=== PATIENT | female | born 1995 | race Two or more races ===

== ENCOUNTER 2025-03-16 15:12 | Emergency (ER) | payer MEDICARE, MEDICAID ==
[~2025-03-16] VITALS: Ht 152.4 cm; Wt 68.2 kg
--- NOTE | 2025-03-16 15:47 | ED.PDOC ---
GI ASSESSMENT HPI Comments 29 year old female STEFANY presents to the ED with chief complaint of N/V and abdominal pain. Patient reports that she started to experience nausea and vomiting since 6am with associated chills, lower abdominal pain that radiates to the back, sweats, and a headache. Patient relays that later on today, she had a syncopal episode when she was having severe pain approximately 2 hours ago. Patient states she had similar symptoms 2 weeks ago, but at that time she had very low blood sugar and now it is normal. Patient denies any chest pain, SOB, dizziness, diarrhea, fever, dysuria, or hematemesis. Chief Complaint: Nausea/Vomiting Time Seen by MD: 15:46 Reviewed Notes: Nurses Notes, Trim Line Worker Notes, Medications, Allergies Allergies: Uncoded Allergies: PEANUTS (Allergy, Unknown, 03/05/25) SHELLFISH (Allergy, Unknown, 03/05/25) Information Source: Patient, Emergency Med Personnel Mode of Arrival: EMS Timing: Hours Duration: Since onset Prehospital treatment: None Quality: Sharp Vomitus: Watery Stool: Normal Severity: Moderate Recent: None Recent Hx of: None Pain Location: Suprapubic Associated sign and symptoms: Nausea, Vomiting, Abdominal Pain Past Medical History PAST MEDICAL HISTORY: Asthma Past Medical History (Other): Glaucoma Surgical History (Other): Right eye surgery MORTGAGE SPECIALIST History: No Pertinent MORTGAGE SPECIALIST History Family History Family History: Family hx of DM, Family hx of Cancer, Family hx of heart lauren Social History Smoker: Other Alcohol: Occasionally Drugs: Marijuana Lives In: Home Constitutional: reports: chills, sweats; denies: diaphoresis, fatigue, fever, malaise, weakness, others EENTM: denies: blurred vision, double vision, ear bleeding, ear discharge, ear drainage, ear pain, ear ringing, eye pain, eye redness, hearing loss, mouth pain, mouth swelling, nasal discharge, nose bleeding, nose congestion, nose pain, photophobia, tearing, throat pain, throat swelling, voice changes, others Respiratory: denies: cough, hemoptysis, orthopnea, SOB at rest, shortness of breath, SOB with excertion, stridor, wheezing, others Cardiovascular: reports: syncope; denies: chest pain, dizzy spells, diaphoresis, Dyspnea on exertion, edema, irregular heart beat, left arm pain, lightheadedness, palpitations, PND, others Gastrointestinal: reports: abdominal pain, nausea, vomiting; denies: abdomen distended, blood streaked bowels, constipated, diarrhea, dysphagia, difficulty swallowing, hematemesis, melena, poor appetite, poor fluid intake, rectal bleeding, rectal pain, others Genitourinary: denies: abnormal vagina bleeding, burning, dyspareunia, dysuria, flank pain, frequency, hematuria, incontinence, pain, , vagina discharge, urgency, others Neurological: reports: headache; denies: dizziness, fainting, left sided numbness, left sided weakness, numbness, paresthesia, pre-existing deficit, right sided numbness, right sided weakness, seizure, speech problems, tingling, tremors, weakness, others Musculoskeletal: denies: back pain, gout, joint pain, joint swelling, muscle pain, muscle stiffness, neck pain, others Integumetry: denies: bruises, change in color, change in hair/nails, dryness, laceration, lesions, lumps, rash, wounds, others Allergic/Immunocompromised: denies: Difficulty Healing, Frequent Infections, Hives, Itching, others Hematologic/Lymphatic: denies: anemia, blood clots, easy bleeding, easy bruising, swollen glands, others Endocrine: denies: excessive hunger, excessive sweating, excessive thirst, excessive urination, flushing, intolerance to cold, intolerance to heat, unexplained weight gain, unexplained weight loss, others Psychiatric: denies: anxiety, bipolar disorder, depression, hopeless, panic disorder, schizophrenia, sleepless, suicidal, others All Other Systems: Reviewed and Negative Physical Exam General Appearance: No Apparent Distress, Obese HEENT: Other (moist mucous membranes) Neck: Full Range of Motion, Normal Inspection Respiratory: Lungs Clear, No Accessory Muscle Use, No Respiratory Distress, Normal Breath Sounds Cardiovascular: No Edema, No JVD, Regular Rate/Rhythm Breast Exam: Deferred Gastrointestinal: Soft, Suprapubic, Tenderness Genitalia: Deferred Pelvic: Deferred Rectal: Deferred Extremities: Normal inspection, Normal range of motion, Non-tender, No pedal edema Neurologic: Alert (Oriented x4), Normal Affect, Normal Mood, Other (Ambulatory) Cerebellar Function: NOT DONE Reflexes: NOT DONE Skin: Dry, Normal Color, Warm Lymphatic: NOT DONE EKG EKG : Comments Sinus rhythm, rate 95, normal intervals, borderline right axis, normal QRS, no ST/T change. Was a procedure done? Was a procedure done?: No GI differential Dx Differential Diagnosis: Diverticular disease, Gastroenteritis, Inflammatory BD, Ischemic Bowel, UTI, Electrolyte Imbalance, Food Poisoning, , Bacterial, Viral, Hypovolemia, Renal Failure, Stress Ulcer, Kidney Stone, Other (Arrhythmia, CVA, TIA, [place], among others) X-Ray, Labs, Meds, VS Vital Signs Date Time Temp Pulse Resp B/P (MAP) Pulse Ox O2 Delivery O2 Flow Rate FiO2 03/16/25 18:43 98.4 93 18 120/71 (87) 97 98.4 03/16/25 16:37 79 18 124/71 03/16/25 16:07 76 19 129/87 03/16/25 15:54 95 03/16/25 15:25 97.7 94 18 121/84 (96) 99 97.7 Lab Test 03/16/25 18:00 03/16/25 16:08 Range/Units Urine Color Yellow Yellow Urine Clarity Turbid H Clear Urine pH 7.0 5.0-9.0 Urine Specific [place] 1.026 1.001-1.035 Urine Protein 1+ H Negative Urine Ketones 3+ H Negative Urine Blood Negative Negative /uL Urine Nitrite Negative Negative Urine Bilirubin Negative Negative Urine Urobilinogen Normal Negative mg/dL Urine Leukocyte Esterase 3+ Negative /uL Urine RBC 2 0 - 4 /hpf Urine Microscopic WBC 7 H 0-5 /HPF Urine Squamous Epithelial Cells Mod <5 /hpf Urine Bacteria None seen None Seen /hpf Urine Mucus Few None Seen Urine Glucose Normal Normal mg/dL White Blood Count 13.5 H 4.4-10.8 10^3/uL Red Blood Count 4.57 4.0-5.20 10^6/uL Hemoglobin 14.4 12.2-16.2 g/dL Hematocrit 42.2 36.0-46.0 % Mean Corpuscular Volume 92.4 80.0-100.0 fL Mean Corpuscular Hemoglobin 31.5 28.0-32.0 pg Mean Corpuscular Hemoglobin Concent 34.1 32.0-36.0 g/dL Red Cell Distribution Width 13.2 11.8-14.3 % Platelet Count 270 140-450 10^3/uL Mean Platelet Volume 8.3 6.9-10.8 fL Neutrophils (%) (Auto) 76.8 37.0-80.0 % Lymphocytes (%) (Auto) 15.6 10.0-50.0 % Monocytes (%) (Auto) 7.2 0.0-12.0 % Eosinophils (%) (Auto) 0.1 0.0-7.0 % Basophils (%) (Auto) 0.3 0.0-2.0 % Neutrophils # (Auto) 10.4 H 1.6-8.6 10 ^3/uL Lymphocytes # (Auto) 2.1 0.4-5.4 10 ^3/uL Monocytes # (Auto) 1.0 0-1.3 10 ^3/uL Eosinophils # (Auto) 0 0-0.8 10 ^3/uL Basophils # (Auto) 0 0-0.2 10 ^3/uL Nucleated Red Blood Cells 0.0 % Sodium Level 142 136-145 mmol/L Potassium Level 3.7 3.5-5.1 mmol/L Chloride Level 107 98-107 mmol/L Carbon Dioxide Level 22 20-31 mmol/L Anion Gap 13 5-15 Blood Urea Nitrogen 10 9-23 mg/dL Creatinine 0.88 0.550-1.02 mg/dL Glomerular Filtration Rate Calc 92 >90 mL/min BUN/Creatinine Ratio 11.4 10.0-20.0 Serum Glucose 76 74-106 mg/dL Calcium Level 10.0 8.7-10.4 mg/dL Total Bilirubin 0.7 0.2-1.0 mg/dL Aspartate Amino Transferase (AST) 28 13-40 U/L Alanine Aminotransferase (ALT) 33 7-40 U/L Alkaline Phosphatase 66 46-116 U/L Troponin I High Sensitivity < 3 L </=34 ng/L Total Protein 8.1 5.7-8.2 g/dL Albumin 5.2 H 3.2-4.8 g/dL Lipase 30 12-53 U/L Current Medications Medications (Trade) Dose Ordered Sig/Michael Route Start Time Stop Time Status Last Admin Sodium Chloride 2,000 ml @ 1,000 mls/hr Q2H ONCE IV 03/16/25 15:45 03/16/25 17:44 DC 03/16/25 16:07 Morphine Sulfate 4 mg ONCE ONCE IV 03/16/25 15:45 03/16/25 15:47 DC 03/16/25 16:07 Ondansetron HCl (Zofran) 4 mg ONCE ONCE IV 03/16/25 15:45 03/16/25 15:47 DC 03/16/25 16:06 PROCEDURE(s): HWOCT - HEAD WITHOUT CONTRAST REASON: syncope ORDER NUMBER(s): [id number], ACCESSION NUMBER(s): [id number] ADDENDUM ADDENDUM # 1 IMPRESSION: 1. HS:Y ORIGINAL REPORT EXAM: CT HEAD WITHOUT CONTRAST INDICATION: syncope TECHNIQUE: CT of the head without intravenous contrast. Radiation Dose Information: CT Dose: CTDI volume is 58.09 mGy. Dose-length product is 931.19 mGy*cm The dose indicators for CT are the volume Computed Tomography (CT) Dose Index (CTDIvol) and the Dose Length Product (DLP), and are measured in units of mGy and mGy-cm, respectively. These indicators are not patient dose, but values generated from the CT scanner acquisition factors. The report includes radiation exposure data for exposures received during this examination. COMPARISON: None FINDINGS: There is no evidence of acute intracranial hemorrhage, extra-axial collection, mass effect, midline shift, herniation or hydrocephalus. The ventricles, sulci and cisterns are age appropriate. The sotelo-white differentiation is intact. Patchy periventricular and subcortical white matter hypoattenuation is nonspecific but may be related to small vessel ischemic disease. The visualized paranasal sinuses and mastoid air cells are clear. The surrounding soft tissues and osseous structures are unremarkable. IMPRESSION: 1. No acute intracranial abnormality. EDURE(s): ABPL - CT AB PEL WO CON-NO ORAL OR IV REASON: low abd pain, n/v ORDER NUMBER(s): [id number], ACCESSION NUMBER(s): [id number] ADDENDUM ADDENDUM # 1 IMPRESSION: 1. HS:Y ORIGINAL REPORT Exam: CT CT AB PEL WO CON-NO ORAL OR IV History: low abd pain, n/v Comparison Study: None TECHNIQUE: Multidetector CT of the abdomen was performed from lung bases to pubic symphysis. Imaging was performed without IV contrast. Axial, coronal and sagittal multiplanar reformats were obtained from the axial data set by the te chnologist. Radiation Dose Information: CT Dose: CTDI volume is 10.16 mGy. Dose-length product is 450.29 mGy*cm FINDINGS: Evaluation of solid organs is limited due to lack of intravenous contrast use. Findings: Lung Bases: No acute or significant lung base finding. Normal heart size. No pleural or pericardial effusion. Liver: The liver is normal in size. No focal lesions. Gallbladder and Biliary Tree: Unremarkable Spleen: Unremarkable Pancreas: The pancreas is grossly normal in appearance. Adrenal Glands: Unremarkable Kidneys: Kidneys are grossly normal without calculi or hydronephrosis. Bladder: Grossly unremarkable for degree of distention. Bowel: The stomach is grossly normal in appearance. Small bowel and colon are normal in caliber and distribution. The appendix is not visualized; however, no secondary findings of acute appendicitis identified. Ascites: Absent Lymphadenopathy: No mesenteric, retroperitoneal or periportal lymphadenopathy. Abdominal Wall and Mesentery: Unremarkable. Vasculature: The visualized abdominal aorta is normal in size and caliber. Evaluation of abdominal and pelvic vessels is limited due to lack of intravenous contrast. Pelvic Organs: Unremarkable Musculoskeletal: No aggressive focal bony lesions, acute fractures or dislocation. Soft tissues: Unremarkable IMPRESSION: 1. No calcified gallstones 2. No findings of bowel obstruction. 3. No nephrolithiasis or hydronephrosis. Radiation optimization: All CT scans at this facility use at least one of these dose optimization techniques: automated exposure control mA and/or kV adjustment per patient size (includes targeted exams where dose is matched to clinical indication) or iterative reconstruction. X-Ray, Labs, Meds, VS Comment 29-year-old female with a history of asthma and glaucoma presenting with abdominal pain, nausea, vomiting, and a syncopal episode Vitals unremarkable Exam remarkable for suprapubic tenderness to palpation Rhythm strip independently interpreted by me: Sinus rhythm rate 94, no ectopy. CT head unremarkable CT abdomen and pelvis unremarkable CBC remarkable for WBC 13.5, metabolic panel unremarkable, troponin negative, UA abnormal consistent with UTI Patient treated with the following in the ED: 2 L 0.9 normal saline IV bolus, morphine 4 mg IV, Zofran 4 mg IV, Rocephin 1 g IV On re-evaluation, patient states pain has improved. Vitals were stable. Repeat abdominal exam was benign. Hospitalization was considered, however patient had rapid improvement of symptoms treatment in the ED, she has been neurologically intact throughout her stay, and I no longer feel hospitalization is necessary. Patient now appears stable for discharge with close outpatient follow-up with her primary physician. Rx Keflex, Zofran, ibuprofen Time of 1ST Reevaluation: 16:46 Reevaluation 1ST: Unchanged Time of 2ND Reevaluation: 19:09 Reevaluation 2ND: Improved Patient Education/Counseling: Diagnosis, Treatment Family Education/Counseling: No Family Present Departure 1 Departure Time of Disposition: 19:09 Impression: Primary Impression: UTI (urinary tract infection) Qualified Codes: N39.0 - Urinary tract infection, site not specified Additional Impression: Syncope Qualified Codes: R55 - Syncope and collapse Disposition: 01 HOME / SELF CARE / HOMELESS Condition: Stable Additional Instructions: Your blood tests were unremarkable. Your urine test showed you have a urinary tract infection, which is likely part of the cause of your symptoms. Your head CT was unremarkable. Your abdominal CT was unremarkable. I have prescribed medication for pain and nausea, and antibiotics for your UTI. Follow-up with your primary doctor in 1-2 days. Return to ER for persistent or worsening sym ptoms. e-Prescriptions Ibuprofen (Ibuprofen) 800 Mg Tab 1 TAB PO TID PRN, #30 TAB 1 Refill prn pain, take with food Prov: PRASHANT HERRERA MD 03/16/25 Ondansetron Odt 4MG Tab (ZOFRAN PO) 4 Mg Tb 4 MG PO TID PRN, #30 TAB prn nausea/vomiting ODT TAB-DISSOLVE IN MOUTH, THEN SWALLOW Prov: PRASHANT HERRERA MD 03/16/25 Cephalexin Monohydrate (Cephalexin) 500 Mg Cap 1 CAP PO QID for 10 Days, #40 CAP Prov: PRASHANT HERRERA MD 03/16/25 Discharged With: Relative Critical Care Note Critical Care Time?: No Stability Stability form required: No Heart Score Heart Score: Heart Score Response (Comments) Value History N/A 0 EKG N/A 0 Age N/A 0 Risk Factors N/A 0 Troponin N/A 0 Total 0 I personally scribed for PRASHANT HERRERA MD ([email or web address]) on 03/16/25 at 15:47. Electronically submitted by Surendra Zamora ([email or web address]). PRASHANT HERRERA MD Mar 16, 2025 15:47
[2025-03-16] MEDS: ONDANSETRON HCL 4 MG/2 ML VIAL IV ONE (16:06)
[2025-03-16] MEDS: MORPHINE SULFATE 4 MG/ML SYR/VIAL IV ONE (16:07)
[2025-03-16] MEDS: SODIUM CHLORIDE 0.9% 2,000 ML IV ONE (16:07)
[2025-03-16 16:18] LABS: Basophils # (auto) 0 10 ^3/uL (0-0.2); Basophils % (auto) 0.3 % (0.0-2.0); Eosinophils # (auto) 0 10 ^3/uL (0-0.8); Eosinophils % (auto) 0.1 % (0.0-7.0); Hematocrit 42.2 % (36.0-46.0); Hemoglobin 14.4 g/dL (12.2-16.2); Lymphocytes # (auto) 2.1 10 ^3/uL (0.4-5.4); Lymphocytes % (auto) 15.6 % (10.0-50.0); Mean Corpuscular Hemoglobin 31.5 pg (28.0-32.0); Mean Corpuscular Hgb Conc. 34.1 g/dL (32.0-36.0); Mean Corpuscular Volume 92.4 fL (80.0-100.0); Monocytes % (auto) 7.2 % (0.0-12.0); Neutrophils # (auto) 10.4 10 ^3/uL (1.6-8.6); Neutrophils % (auto) 76.8 % (37.0-80.0); Platelet Count (auto) 270 10^3/uL (140-450); Red Blood Cells 4.57 10^6/uL (4.0-5.20); Red Cell Distribution Width 13.2 % (11.8-14.3); White Blood Cell 13.5 10^3/uL (4.4-10.8)
[2025-03-16 16:35] LABS: Alanine Aminotransferase 33 U/L (7-40); Alkaline Phosphatase 66 U/L (46-116); Anion Gap 13 (5-15); Aspartate Aminotransferase 28 U/L (13-40); BUN/Creatinine Ratio 11.4 (10.0-20.0); Blood Urea Nitrogen 10 mg/dL (9-23); Carbon Dioxide 22 mmol/L (20-31); Glucose 76 mg/dL (74-106); Lipase 30 U/L (12-53); Potassium 3.7 mmol/L (3.5-5.1); Sodium 142 mmol/L (136-145); Total Protein 8.1 g/dL (5.7-8.2)
[2025-03-16 16:36] LABS: Bilirubin, Total 0.7 mg/dL (0.2-1.0)
[2025-03-16 16:42] LABS: Albumin 5.2 g/dL (3.2-4.8); Chloride 107 mmol/L (98-107)
--- NOTE | 2025-03-16 16:50 | DVH ---
EXAM: CT HEAD WITHOUT CONTRAST INDICATION: syncope TECHNIQUE: CT of the head without intravenous contrast. Radiation Dose Information: CT Dose: CTDI volume is 58.09 mGy. Dose-length product is 931.19 mGy*cm The dose indicators for CT are the volume Computed Tomography (CT) Dose Index (CTDIvol) and the Dose Length Product (DLP), and are measured in units of mGy and mGy-cm, respectively. These indicators are not patient dose, but values generated from the CT scanner acquisition factors. The report includes radiation exposure data for exposures received during this examination. COMPARISON: None FINDINGS: There is no evidence of acute intracranial hemorrhage, extra-axial collection, mass effect, midline s hift, herniation or hydrocephalus. The ventricles, sulci and cisterns are age appropriate. The sotelo-white differentiation is intact. Patchy periventricular and subcortical white matter hypoattenuation is nonspecific but may be related to small vessel ischemic disease. The visualized paranasal sinuses and mastoid air cells are clear. The surrounding soft tissues and osseous structures are unremarkable. IMPRESSION: 1. No acute intracranial abnormality.
--- NOTE | 2025-03-16 16:57 | DVH ---
Exam: CT CT AB PEL WO CON-NO ORAL OR IV History: low abd pain, n/v Comparison Study: None TECHNIQUE: Multidetector CT of the abdomen was performed from lung bases to pubic symphysis. Imaging was performed without IV contrast. Axial, coronal and sagittal multiplanar reformats were obtained fr om the axial data set by the technologist. Radiation Dose Information: CT Dose: CTDI volume is 10.16 mGy. Dose-length product is 450.29 mGy*cm FINDINGS: Evaluation of solid organs is limited due to lack of intravenous contrast use. Findings: Lung Bases: No acute or significant lung base finding. Normal heart size. No pleural or pericardial effusion. Liver: The liver is normal in size. No focal lesions. Gallbladder and Biliary Tree: Unremarkable Spleen: Unremarkable Pancreas: The pancreas is grossly normal in appearance. Adrenal Glands: Unremarkable Kidneys: Kidneys are grossly normal without calculi or hydronephrosis. Bladder: Grossly unremarkable for degree of distention. Bowel: The stomach is grossly normal in appearance. Small bowel and colon are normal in caliber and d istribution. The appendix is not visualized; however, no secondary findings of acute appendicitis id entified. Ascites: Absent Lymphadenopathy: No mesenteric, retroperitoneal or periportal lymphadenopathy. Abdominal Wall and Mesentery: Unremarkable. Vasculature: The visualized abdominal aorta is normal in size and caliber. Evaluation of abdominal a nd pelvic vessels is limited due to lack of intravenous contrast. Pelvic Organs: Unremarkable Musculoskeletal: No aggressive focal bony lesions, acute fractures or dislocation. Soft tissues: Unremarkable IMPRESSION: 1. No calcified gallstones 2. No findings of bowel obstruction. 3. No nephrolithiasis or hydronephrosis. Radiation optimization: All CT scans at this facility use at least one of these dose optimization augusto hniques: automated exposure control mA and/or kV adjustment per patient size (includes targeted exam s where dose is matched to clinical indication) or iterative reconstruction.
[2025-03-16 18:11] LABS: Urine Bacteria None Seen /hpf (None Seen)
[2025-03-16 18:26] LABS: Urine Blood Negative /uL (Negative); Urine Clarity Turbid (Clear); Urine Color Yellow (Yellow); Urine Mucus FEW (None Seen); Urine Protein, UAD 1+ (Negative); Urine Specific Gravity 1.026 (1.001-1.035); Urine Squamous Epithelial Cell MOD /hpf (<5); Urine Urobilinogen Normal (Negative); Urine WBC 7 /HPF (0-5)
[2025-03-16] MEDS ORDERED: IBUP-1456 PO (19:11)
[2025-03-16] MEDS ORDERED: CEPH500C PO (19:11)
[2025-03-16] MEDS ORDERED: ZOFR4T PO (19:11)
[2025-03-16] MEDS: cefTRIAXone 1GM/50ML D5W 50 ML IV ONE (20:34)
[2025-03-16 20:38] VITALS: BP 118/66; PULSE 90; RESP 16; TEMP 98.5; O2SAT 99
--- NOTE | 2025-03-18 12:21 | ECG ---
[facility] Test Date: 2025-03-16 Test Time: 15:54:13 Pat Name: JACKY SAL Department: ED Room: Gender: F [employer] Sales Representative: DR VASQUEZ: 1995 Requested By: PRASHANT MALDONADO Order Number: [id number] Reading MD: Measurements Intervals [place] Rate: 95 P: 29 DE: 128 QRS: 93 QRSD: 76 T: 26 QT: 367 QTc: 462 Interpretive Statements Sinus rhythm Borderline right axis deviation Baseline wander in lead(s) V4 Please click the below link to view image of tracing.
== END 2025-03-16 21:45 | disposition home or self-care (01) ==
LOC: ER 15:12 → EDBD 15:12 → ER 21:45
DX: N39.0 Urinary tract infection, site not specified (principal); R55 Syncope and collapse; J45.909 Unspecified asthma, uncomplicated; F17.200 Nicotine dependence, unspecified, uncomplicated; Z91.010 Allergy to peanuts; Z88.8 Allergy status to other drugs, medicaments and biological substances
CPT/HCPCS: 36415; 70450; 74176; 80053; 81001; 83690; 84484; 85025; 93005; 96361; 96365; 96375; 99285; J0696; J2270; J2405; J7030

== ENCOUNTER 2025-05-26 20:30 | Emergency (ER) | payer MEDICARE, MEDICAID ==
[~2025-05-26] VITALS: Ht 152.4 cm; Wt 74.1 kg
[~2025-05-26 20:30] MED LIST: CEPH500C PO; IBUP-1456 PO; ZOFR4T PO
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
[2025-05-26] MEDS: HYDROcodone-ACET 5/325MG TAB PO ONE (23:24)
[2025-05-26] MEDS: KETOROLAC TROMETH 60MG/2ML VIAL IM ONE (23:24)
[2025-05-26 23:29] VITALS: BP 115/76; PULSE 96; RESP 19; TEMP 97.9; O2SAT 100
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
[2025-05-27] MEDS ORDERED: TIZA-142 PO (00:08)
[2025-05-27] MEDS ORDERED: IBUP-1456 PO (00:08)
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
== END 2025-05-27 00:25 | disposition home or self-care (01) ==
LOC: ER 20:30
DX: S13.4XXA Sprain of ligaments of cervical spine, initial encounter (principal); S23.3XXA Sprain of ligaments of thoracic spine, initial encounter; S93.402A Sprain of unspecified ligament of left ankle, initial encounter; S50.01XA Contusion of right elbow, initial encounter; J45.909 Unspecified asthma, uncomplicated; X58.XXXA Exposure to other specified factors, initial encounter; Y93.89 Activity, other specified; Y92.89 Other specified places as the place of occurrence of the external cause; Y99.8 Other external cause status
CPT/HCPCS: 72040; 72070; 73080; 73610; 96372; 99284; J1885